=== PATIENT | male | born 1980 | race Caucasian/White ===

== ENCOUNTER 2024-09-13 14:29 | Emergency (ER) | payer OTHER, MEDICARE, SELFPAY ==
[2024-09-13 14:32] VITALS: BP 147/100
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
[2024-09-13] MEDS: TORADOL 60 MG IM (15:56)
[2024-09-13] MEDS: PERCOCET 5/325 1 TABLET PO (15:56)
[2024-09-13 16:05] VITALS: BP 149/103
== END 2024-09-13 16:18 | disposition home or self-care (01) ==
LOC: EMR 14:29
PROVIDERS: EMERGENCY PHYSICIAN Student in an Organized Health Care Education/Training Program
DX: S43.101A Unspecified dislocation of right acromioclavicular joint, initial encounter (principal); V18.4XXA Pedal cycle driver injured in noncollision transport accident in traffic accident, initial encounter; Y93.55 Activity, bike riding
CPT/HCPCS: 96372; 99284; 73030

== ENCOUNTER 2024-09-15 10:27 | Emergency (ER) | payer MEDICARE, OTHER, SELFPAY ==
[2024-09-15 10:50] VITALS: BP 139/92
[2024-09-15 11:15] VITALS: BMI 35.1
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
--- NOTE | 2024-09-15 12:00 | EDRN ---
Pt was able to get an appt w/ orthopedist today at 14:30.
== END 2024-09-15 12:05 | disposition home or self-care (01) ==
LOC: EMR 10:27
PROVIDERS: EMERGENCY PHYSICIAN Emergency Medicine
DX: S43.101A Unspecified dislocation of right acromioclavicular joint, initial encounter (principal); V18.0XXA Pedal cycle driver injured in noncollision transport accident in nontraffic accident, initial encounter; Y93.55 Activity, bike riding; R03.0 Elevated blood-pressure reading, without diagnosis of hypertension; Z90.49 Acquired absence of other specified parts of digestive tract
CPT/HCPCS: 99282